=== PATIENT | female | born 1990 | race Caucasian/White ===

== ENCOUNTER 2018-10-07 15:00 | Emergency (ER) | payer OTHER ==
[2018-10-07] MEDS ORDERED: hydrOXYzine Pamoate 25 mg Capsule PO SCH (15:45)
== END 2018-10-07 16:21 | disposition home or self-care (01) ==
LOC: ERS 15:00
DX: F41.0 Panic disorder [episodic paroxysmal anxiety] (principal); F32.9 Major depressive disorder, single episode, unspecified
CPT/HCPCS: 93005; 99283; Q0177

== ENCOUNTER 2019-06-02 08:39 | Emergency (ER) | payer OTHER ==
[2019-06-02] MEDS ORDERED: methylPREDNISolone Sod Succ/PF 125 MG/2 ML VIAL ONE (10:59)
[2019-06-02] MEDS ORDERED: Morphine 4 MG/ML VIAL ONE (10:59)
--- NOTE | 2019-06-02 13:42 | MRI ---
MRI LUMBAR SPINE NONCONTRAST: DATE: 06/02/2019 HISTORY: 28-year-old female with low back pain and right lumbar radiculopathy including right lower extremity weakness. COMPARISON: none FINDINGS: For the purposes of this report, it will be assumed that there are 5 lumbar-type vertebrae. Vertebral body heights are maintained. No major spondylolisthesis. Mild right and left lateral Modic type I changes at L4-5. Bone marrow sig nal is otherwise normal. Conus medullaris terminates at L1-2. T12-L1:Normal L1-2:Normal L2-3:Normal L3-4:Disc desiccation. Minimal disc space narrowing. Posterior midline annular fissure with shallow, broad based disc protrusion which indents the ventral aspect of thecal sac causing minimal central spinal canal stenosis. No neural foraminal stenosis. L4-5:Disc desiccation. Mild disc space narrowing. Superimposed on a mild diffuse disc bulge, there is a focal moderately large 12 x 8 x 9 mm right paramedian-lateral extruded disc herniation which extends far posteriorly to the posterior aspect of the spinal canal, compressing and displacing multi ple nerve roots of the cauda equina. It decreases the cross-sectional area of the spinal canal and thecal sac by approximately 60-75%. No neural foraminal stenosis. L5-S1:Disc desiccation and moderate disc space narrowing. Diffuse disc bulge-circumferential osteophy tic bar complex causing mild to moderate bilateral neural foraminal stenosis and mild lateral recess stenosis bilaterally. Mild central spinal canal stenosis. IMPRESSION: 1) moderately large right paracentral disc extrusion at L4-5 significantly compressing multiple right -sided nerve roots. 2) degenerative disc disease at the last 3 levels, greater than typical for this age group.
--- NOTE | 2019-06-02 15:23 | PRG ---
DATE OF SERVICE: 06/02/2019 This is a 30-minute initial hospital visit note, in which 30 minutes were spent reviewing the imaging record, evaluation, and examination of patient, formulation of plan. Greater than 50% time was spent in counseling on Margaux Bradford. SUBJECTIVE: Ms. 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 For the last 12 years, she has had intermittent low back and right L5 mediated pain, and this past weekend, she was doing squats and she had the onset of symptoms, they then improved and then returned today with significant vengeance. Review of an MRI of the lumbar spine demonstrates a disk extrusion at the right L4-L5 segment compressing the traversing right L5 nerve root. This is the culprit of her symptoms. On exam, she is alert, appropriate. She has full strength throughout in her lower extremity myotomes. She is much more comfortable since a dose of morphine has been given. I have arranged for her to see Dr. Santos tomorrow for right L5 transforaminal epidural steroid injection. She should be dismissed from the hospital with oral analgesics and muscle relaxants, and I will plan on seeing her in the next 2 weeks in my clinic. Should she fail conservative management, which she has not at this point, I have recommended right L4-L5 hemilaminotomy, foraminotomy, and diskectomy. However, at this point, we need to give conservative management a chance. DIAGNOSIS: Low back and right leg pain with right L4-L5 disk extrusion, right L5 radiculopathy. Job ID: [id number]
== END 2019-06-02 16:11 | disposition home or self-care (01) ==
LOC: ERS 08:39
DX: M51.26 Other intervertebral disc displacement, lumbar region (principal); F41.9 Anxiety disorder, unspecified; F32.9 Major depressive disorder, single episode, unspecified; Z79.899 Other long term (current) drug therapy
CPT/HCPCS: 72148; 96374; 96375; J2270; J2930

== ENCOUNTER 2019-07-04 13:08 | Outpatient (CLI) | payer OTHER ==
--- NOTE | 2019-07-04 13:57 | RAD ---
LUMBAR SPINE SERIES 4 VIEWS WITH FLEXION AND EXTENSION: Date: 07/04/2019 HISTORY: Right leg weakness. FINDINGS: Vertebral bodies maintain normal height. There is some minimal disc narrowing at L3-4, L4-5, and L5-S 1. I do not appreciate any abnormal motion on the flexion or extension views. IMPRESSION: Mild disc narrowing of the lower lumbar spine. POS: JULIAN
== END 2019-07-04 13:09 | disposition home or self-care (01) ==
LOC: TBSIIMAG 13:08
PROVIDERS: ATTEND Surgery
DX: M54.5 Low back pain (principal); M48.061 Spinal stenosis, lumbar region without neurogenic claudication
CPT/HCPCS: 72110

== ENCOUNTER 2019-07-22 05:49 | Day surgery (SDC) | payer OTHER ==
[2019-07-21 10:17] VITALS: BMI 23.5
[2019-07-22] MEDS ORDERED: Thrombin 5000 UNITS/5 ML VIAL ONE (06:49)
[2019-07-22] MEDS ORDERED: Sodium Chloride 0.9% 10 ML ONE (06:49)
[2019-07-22 06:52] LABS: BHCG - Serum Negative (NEGATIVE); Pregs Control Background? CLEAR/WHITE (CLR/WHITE); Pregs Control Bar Appear? YES (CONTROL BAR)
[2019-07-22 06:55] LABS: INR-International Normal Ratio 0.9; PTT 26.9 SEC (22.9-36.1); Prothrombin Time 12.2 SEC (12.0-14.7)
[2019-07-22] MEDS ORDERED: Fentanyl 250 MCG/5 ML VIAL ONE (06:55)
[2019-07-22] MEDS ORDERED: Midazolam HCl 2 mg/2 ml Vial ONE (06:55)
[2019-07-22] MEDS ORDERED: HYDROmorphone 2 MG/ML VIAL ONE (06:56)
[2019-07-22 07:07] LABS: Anion Gap 10 mmol/L (10-20); BUN (Urea Nitrogen) 9 mg/dL (7.0-18.7); Calc. Creatinine Clearance 107 mL/min (70-130); Calcium 9.1 mg/dL (7.8-10.44); Carbon Dioxide 28 mmol/L (22-29); Chloride 105 mmol/L (98-107); Estimated GFR-MDRD 90; Glucose 87 mg/dL (70-105); Potassium 3.8 mmol/L (3.5-5.1); Sodium 139 mmol/L (136-145)
[2019-07-22] MEDS ORDERED: PROPOFOL 20 ML ONE (07:12)
[2019-07-22 07:22] LABS: Band 10 % (5-11); Eosinophils 4 % (0-10); Lymphocytes 29 % (21-51); MDiff Complete? YES; Mean Corpuscular HGB CONC 32.6 g/dL (32.0-36.0); Mean Corpuscular Hemoglobin 30.1 pg (27.0-31.0); Mean Corpuscular Volume 92.3 fL (78.0-98.0); Mean Platelet Volume 6.8 fL (7.4-10.4); Monocytes 1 % (0-10); Neutrophil 34 % (42-75); Platelet Count 262 thou/uL (130-400); Reactive Lymphocytes 22 % (0-10); Red Blood Cell (RBC) Count 4.64 mill/uL (4.20-5.40); White Blood Cell (WBC) Count 7.4 thou/uL (4.8-10.8)
[2019-07-22] MEDS ORDERED: Morphine 2 MG/ML SYRINGE SLOW IVP PRN (09:38)
[2019-07-22] MEDS ORDERED: Bisacodyl 10 MG SUPP PR PRN (09:38)
[2019-07-22] MEDS ORDERED: Acetaminophen 325 MG TAB PO PRN (09:38)
[2019-07-22] MEDS ORDERED: Milk Of Magnesia 30 ML UDCUP PO PRN (09:38)
[2019-07-22] MEDS ORDERED: tiZANidine HCl 4 MG TAB PO PRN (09:38)
[2019-07-22] MEDS ORDERED: traMADol HCl 50 MG TAB PO PRN (09:38)
[2019-07-22] MEDS ORDERED: Mag-Al 1200 mg/1200 mg/30 ML UDCUP PO PRN (09:38)
[2019-07-22] MEDS ORDERED: Ondansetron PF 4 MG/2 ML Vial IVP PRN (09:38)
[2019-07-22] MEDS ORDERED: Fleet Enema 133 ML BOT PR PRN (09:38)
[2019-07-22] MEDS ORDERED: Dexamethasone 20 MG/5 ML VIAL ONE (09:51)
[2019-07-22] MEDS ORDERED: Rocuronium Bromide 10 MG/ML (10ML VIAL) ONE (09:51)
[2019-07-22] MEDS ORDERED: EPHEDRINE 25 MG/5 ML SYRINGE ONE (09:51)
[2019-07-22] MEDS ORDERED: Lidocaine 1% PF 5 ML VIAL ONE (09:51)
[2019-07-22] MEDS ORDERED: Glycopyrrolate 0.2 MG/ML 5 ML SYRINGE ONE (09:51)
[2019-07-22] MEDS ORDERED: PROPOFOL 200 MG/20 ML VIAL ONE (09:51)
[2019-07-22] MEDS ORDERED: PHENYLEPHRINE-NS 100 MCG/ML 10 ML SYRINGE ONE (09:51)
[2019-07-22] MEDS ORDERED: Ketorolac Tromethamine 30 MG/ML VIAL ONE (09:51)
[2019-07-22] MEDS ORDERED: Ondansetron PF 4 MG/2 ML Vial ONE (09:51)
--- NOTE | 2019-07-22 10:22 | OP ---
DATE OF PROCEDURE: 07/22/2019 SHERIFF'S SERGEANT: Haydee Muñiz PA-C LOCATION: OR 5. PREPROCEDURE DIAGNOSIS: Severe L5 radiculopathy with right L4-L5 disk extrusion. POSTPROCEDURE DIAGNOSIS: Severe L5 radiculopathy with right L4-L5 disk extrusion. PROCEDURES PERFORMED: 1. Right L4-L5 hemilaminotomy, foraminotomy, and diskectomy. 2. Use of operative microscope for microdissection. DESCRIPTION OF PROCEDURE: After informed consent was obtained from the patient, the patient was brought to the OR. Proper patient, pause, and identification were carried out. She was placed under excellent general endotracheal anesthesia and positioned prone on the OR table. All appropriate points were padded. We identified a midline ny that allowed for approach to the L4-L5 segment. This region was sterilely cleansed, prepared, and draped. Proper patient, pause, and identification were carried out. The wound was then opened with a combination of sharp, monopolar, and blunt dissection. The right L4-L5 segment was exposed. Microscope was brought in and then a right L4-L5 hemilaminotomy, foraminotomy, and diskectomy was performed with removal of a large disk fragment and complete freedom of the traversing right L5 nerve root. We assured freedom of the operative field and there was copious irrigation occurred throughout as did maximizing hemostasis. There was no spinal fluid leak. We maximized the hemostasis. The wound was then closed in anatomic layers following sprinkling of vancomycin powder. The patient then emerged from anesthesia. Job ID: [id number]
[2019-07-22] MEDS: CEFAZOLIN 2 GM in Premix Bag 1 BAG IVPB SCH ×2 (15:11→21:11)
[2019-07-22] MEDS: HYDROcodone/Acetaminophen 7.5/325 mg Tablet PO PRN ×2 (15:11→21:10)
[2019-07-22] MEDS: Sodium Chloride 0.9% 1,000 ML IV SCH ×2 (15:13→18:14)
[2019-07-22] MEDS ORDERED: Norgestimate-Ethinyl Estradiol [Estarylla 0.25-0.035 Mg Tablet] PO SCH (21:00)
[2019-07-23] MEDS: HYDROcodone/Acetaminophen 7.5/325 mg Tablet PO PRN (00:45)
[2019-07-23] MEDS: Acetaminophen/Codeine 30-300mg Tablet PO PRN ×2 (05:18→10:43)
[2019-07-23 07:30] VITALS: BP 104/69; TEMP 98.4
[2019-07-23] MEDS ORDERED: FLU VACC QS2019-20(6MOS UP)/PF 60 MCG/0.5 ML SYRINGE IM ONE (09:00)
--- NOTE | 2019-07-23 09:18 | DIS ---
DATE OF ADMISSION: 07/22/2019 DATE OF DISCHARGE: 07/23/2019 Ms. Bradford was admitted to [facility] by Dr. Yvan Tolbert on July 22, 2019, she was discharged 07/23/2019. ADMISSION DIAGNOSES: Hemilaminotomy, lumbar diskectomy. DISCHARGE DIAGNOSES: Hemilaminotomy, lumbar diskectomy. Ms. Bell's hospital course was uncomplicated. Her pain was well controlled with typical IV and oral pain medications. She ambulated well in the hallways with minimal if any assistance and tolerated this well. She was discharged home in good condition with outpatient followup planned in 2 weeks. Job ID: [id number]
== END 2019-07-23 11:00 | disposition home or self-care (01) ==
LOC: SDC 05:49 → SJJU 09:42 → SDC 07-23 11:00
PROVIDERS: ATTEND Surgery
PROC: 0ST20ZZ Resection of Lumbar Vertebral Disc, Open Approach (ICD-10-PCS; principal; 2019-07-23)
DX: M48.061 Spinal stenosis, lumbar region without neurogenic claudication (principal); M51.16 Intervertebral disc disorders with radiculopathy, lumbar region
CPT/HCPCS: 36415; 76000; 80048; 84703; 85025; 85610; 85730; 93005; 93010; J0690; J1100; J1170; J1885; J2001; J2250; J2405; J2704; J3010; J3370; J3490

== ENCOUNTER 2020-09-27 13:19 | Outpatient (CLI) | payer OTHER | END 2020-09-27 13:20 | disposition home or self-care (01) | LOC: TBSIIMAG 13:19 | PROVIDERS: ATTEND Surgery | DX: M79.605 Pain in left leg (principal); M51.16 Intervertebral disc disorders with radiculopathy, lumbar region | CPT/HCPCS: 72120; 72148 ==

== ENCOUNTER 2020-09-28 13:20 | Inpatient (IN) | payer OTHER ==
[2020-09-28 16:01] VITALS: BMI 25.0
[2020-09-28] MEDS ORDERED: Acetaminophen 325 MG TAB PO PRN (16:06)
[2020-09-28] MEDS ORDERED: traMADol HCl 50 MG TAB PO PRN (16:06)
[2020-09-28] MEDS ORDERED: Acetaminophen/Codeine 30-300mg Tablet PO PRN (16:06)
[2020-09-28] MEDS ORDERED: Morphine 4 MG/ML VIAL SLOW IVP PRN (16:19)
[2020-09-28 17:36] LABS: #Basophils 0.2 thou/uL (0.0-0.2); #Monocytes 0.9 thou/uL (0.11-0.59); #Neutrophils 11.5 thou/uL (1.40-6.50); %Basophils 1.1 % (0.0-1.0); %Eosinophils 0.1 % (0.0-10.0); %Lymphocytes 13.5 % (21.0-51.0); %Neutrophils 79.3 % (42.0-75.0); Hemoglobin 12.4 g/dL (12.0-16.0); Mean Corpuscular HGB CONC 32.8 g/dL (32.0-36.0); Mean Corpuscular Hemoglobin 27.9 pg (27.0-31.0); Mean Corpuscular Volume 85.1 fL (78.0-98.0); Mean Platelet Volume 8.1 fL (7.4-10.4); Platelet Count 250 thou/uL (130-400); RBC Distribution Width 14.5 % (11.5-14.5); Red Blood Cell (RBC) Count 4.44 mill/uL (4.20-5.40); White Blood Cell (WBC) Count 14.5 thou/uL (4.8-10.8)
[2020-09-28 17:46] LABS: PTT 23.5 sec (22.9-36.1); Prothrombin Time 13.5 sec (12.0-14.7)
[2020-09-28 17:56] LABS: Anion Gap 13 mmol/L (10-20); BUN (Urea Nitrogen) 17 mg/dL (7.0-18.7); Calc. Creatinine Clearance 106 mL/min (70-130); Calcium 9.1 mg/dL (7.8-10.44); Carbon Dioxide 25 mmol/L (22-29); Chloride 104 mmol/L (98-107); Glucose 110 mg/dL (70-105); Potassium 4.3 mmol/L (3.5-5.1); Sodium 138 mmol/L (136-145)
[2020-09-28 20:57] LABS: SARS-CoV-2 PCR by NAA Not Detected (NotDetected)
[2020-09-28] MEDS: HYDROcodone/Acetaminophen 7.5/325 mg Tablet PO PRN (22:37)
[2020-09-29] MEDS ORDERED: Thrombin 5000 UNITS/5 ML VIAL ONE (07:19)
[2020-09-29] MEDS ORDERED: Fentanyl 250 MCG/5 ML VIAL ONE (07:43)
[2020-09-29] MEDS ORDERED: Dexmedetomidine 200 MCG/2 ML VIAL ONE (07:43)
[2020-09-29 08:03] LABS: BHCG - Serum Negative (NEGATIVE); Pregs Control Bar Appear? YES (CONTROL BAR)
[2020-09-29 08:04] LABS: Pregs Control Background? CLEAR/WHITE (CLR/WHITE)
[2020-09-29] MEDS ORDERED: Bacitracin Zinc Ointment 30 gm TUBE ONE (08:09)
[2020-09-29] MEDS ORDERED: Ondansetron PF 4 MG/2 ML Vial ONE (08:27)
[2020-09-29] MEDS ORDERED: Rocuronium Bromide 10 MG/ML (10ML VIAL) ONE (08:27)
[2020-09-29] MEDS ORDERED: Ketorolac Tromethamine 30 MG/ML VIAL ONE (08:27)
[2020-09-29] MEDS ORDERED: PROPOFOL 200 MG/20 ML VIAL ONE (08:27)
[2020-09-29] MEDS ORDERED: Glycopyrrolate 0.2 MG/ML 5 ML SYRINGE ONE (08:27)
[2020-09-29] MEDS ORDERED: Dexamethasone 20 MG/5 ML VIAL ONE (08:27)
[2020-09-29] MEDS ORDERED: Lidocaine 1% PF 5 ML VIAL ONE (08:27)
[2020-09-29] MEDS ORDERED: Prevnar 13-Val Conj/PF 0.5 ML SYRINGE IM ONE (09:00)
[2020-09-29] MEDS ORDERED: Sodium Chloride 0.9% 10 ML ONE (09:14)
[2020-09-29] MEDS ORDERED: Promethazine HCl 25 MG/ML VIAL IM PRN (09:46)
[2020-09-29] MEDS ORDERED: PACU-Morphine 4MG/ML VIAL SLOW IVP PRN (09:46)
[2020-09-29] MEDS ORDERED: Meperidine HCl/PF 25 MG/ML VIAL SLOW IVP PRN (09:46)
[2020-09-29] MEDS ORDERED: Morphine Sulfate 2 MG/ML SYRINGE SLOW IVP PRN (09:46)
[2020-09-29] MEDS ORDERED: Ondansetron HCl/PF 4 MG/2 ML Vial IVP PRN (09:46)
[2020-09-29] MEDS ORDERED: Promethazine HCl 25 MG/ML VIAL SLOW IVP PRN (09:46)
[2020-09-29] MEDS ORDERED: HYDROmorphone 2 MG/ML VIAL SLOW IVP PRN (09:46)
[2020-09-29] MEDS ORDERED: Fentanyl 100 MCG/2 ML VIAL ONE (10:23)
[2020-09-29] MEDS: Sodium Chloride 0.9% 1,000 ML IV SCH ×2 (11:32→23:26)
[2020-09-29] MEDS: HYDROcodone/Acetaminophen 7.5/325 mg Tablet PO PRN ×2 (12:16→18:06)
[2020-09-29] MEDS: Cyclobenzaprine 10 MG TAB PO PRN ×2 (12:17→21:25)
[2020-09-29] MEDS: NORGESTIMATE ETHINYL ESTRADIOL PO SCH ×2 (12:42→21:20)
[2020-09-29] MEDS: CEFAZOLIN 2 GM in Premix Bag 1 BAG IVPB SCH ×2 (15:14→21:19)
[2020-09-30 04:01] VITALS: BP 99/62; TEMP 97.8
[2020-09-30] MEDS: Cyclobenzaprine 10 MG TAB PO PRN (09:59)
[2020-09-30] MEDS: HYDROcodone/Acetaminophen 7.5/325 mg Tablet PO PRN (10:00)
[2020-09-30] MEDS: Sodium Chloride 0.9% 1,000 ML IV SCH (10:05)
== END 2020-09-30 14:10 | disposition home or self-care (01) | DRG 520 ==
LOC: SURG B 15:06
PROVIDERS: ADMIT Surgery; ATTEND Surgery
PROC: 0SB20ZZ Excision of Lumbar Vertebral Disc, Open Approach (ICD-10-PCS; principal; 2020-09-29)
PROC: 01NB0ZZ Release Lumbar Nerve, Open Approach (ICD-10-PCS; 2020-09-29)
DX: M51.16 Intervertebral disc disorders with radiculopathy, lumbar region (principal); M48.061 Spinal stenosis, lumbar region without neurogenic claudication; Z20.822 Contact with and (suspected) exposure to COVID-19; Z98.890 Other specified postprocedural states; Z79.3 Long term (current) use of hormonal contraceptives; Z79.891 Long term (current) use of opiate analgesic
CPT/HCPCS: 36415; 72120; 72148; 76000; 80048; 84703; 85025; 85610; 85730; 87635; J0690; J1100; J1885; J2405; J2704; J3010; J3370; J3490; U0003; U0005